=== PATIENT | male | born 1950 | race Caucasian/White ===

== ENCOUNTER → 2021-10-02 13:21 | Outpatient (CLI) | payer OTHER, SELFPAY ==
[2021-10-02 16:35] LABS: COVID19 -Nasal RAPID Negative (Negative)
== END ==
PROVIDERS: Visit Provider Nurse Practitioner Family
DX: Z20.822 Contact with and (suspected) exposure to COVID-19 (principal)
CPT/HCPCS: 87635; C9803

== ENCOUNTER 2021-10-03 13:05 | Day surgery (SDC) | payer OTHER, SELFPAY ==
[2021-10-01 14:05] VITALS: BMI 21.8
[2021-10-03 13:39] VITALS: BP 132/78; PULSE 76; RESP 16; TEMP 37.2; O2SAT 100
[2021-10-03 13:54] VITALS: BMI 21.8
--- NOTE | 2021-10-03 14:10 | PM.PREOP ---
Pre-operative Note COVID-19 COVID-19 status: Negative Interval Note History & Physical reviewed/Exam performed by Physician: Yes Changes to H&P: No
[2021-10-03] MEDS: LACTATED RINGERS 1,000 ML 42 ML IV (14:23)
[2021-10-03] MEDS: CEFAZOLIN 2 GM/20 ML SYRINGE IV (14:40)
[2021-10-03] MEDS: BUPIVACAINE 0.25% (PF) 30 ML, EPINEPHrine 0.15 MG INJ (15:04)
--- NOTE | 2021-10-03 15:09 | SUR.OPER ---
Supine on padded OR bed, head on pillow, arms secured on padded arm boards at <90 degrees abduction, legs uncrossed, safety belt at waist , tape over blanket over lower right leg, left leg draped free with secured blankets under lower leg. .
[2021-10-03] MEDS: VANCOMYCIN 1,000 MG VIAL 1000 MG TOP (15:25)
--- NOTE | 2021-10-03 15:47 | SUR.PREOP ---
5991- called in -? allergy to antibiotic. Gave name of gibraltarian version of med she believes it could be...medication not an antibiotic=medication is for osteoarthritis (Arcoxia). info given to patient = declined need to list it as a medication allergy.
--- NOTE | 2021-10-03 15:59 | P.OP_ITS ---
Operative Date/Time/Diagnoses Date of procedure: 10/03/21 Time of procedure: 15:00 Pre-op diagnosis: Infected hardware left lower extremity ankle Left ankle fracture sequela Syndesmotic disruption left ankle sequela Post-op diagnosis: same Procedure & Clinicians Procedure: Removal of deep implants ankle lateral left CPT code 14125 Removal of deep implants ankle medial, left CPT code 90164-64 Debridement subcutaneous tissue, skin, bone CPT code 37341 left Examination under anesthesia Same procedure as scheduled: Yes Indications: Patient is a 71-year-old male that sustained fracture that was fixed 8 weeks ago by another surgeon in [place]. He developed a draining wound. He has sinus tracks in proximally fiber 6 small locations along the lateral wound with erythema. Continued wound drainage despite 2 weeks of antibiotics prescribed in combination with primary care and the surgeon in [place]. He has evidence of deep infection. A CT scan was obtained which indicates healing of the fracture. The patient was indicated for hardware removal, debridement for treatment of his infection. Will do an exam under anesthesia if his ankle is still unstable then will do revision fixation.. Discussed if hardware needs to stay or revision fixation is indicated then would be indicated for IV antibiotics. If I am able to remove all the hardware in the ankle is stable and no deep purulence obvious he would try oral antibiotics but if unable to eradicate the infection may still require IV antibiotics in the future. The risks and benefits of the procedure have been discussed with the patient and given the opportunity to ask questions. The risks of surgery include but are not limited to infection, need for additional procedures washout 3 antibiotics, malunion, nonunion, persistence of pain, damage to nerves and blood vessels, posttraumatic arthritis, DVT, PE, cardiopulmonary complications and . The patient expressed a thorough understanding of the risks and benefits of surgery and has elected to proceed. Consent was signed. Surgeon: Erika Klein Click Yes if Unassisted: Yes Anesthesia Type: General and Local Operative Notes Findings: Healed lateral malleolus fracture. Plate and 8 screws removed and syndesmotic tight rope was removed. Exam under anesthesia demonstrated stable ankle syndesmosis with external rotation stress testing. No widening of the mortise. Lateral wounds that have sinus tracts down to the hardware. No specific abscess found. Swabs and deep tissue cultures sent for microbiology Closure Type: primary Specimen(s): other (Culture swabs and tissue left lateral ankle sent for microbiology) Estimated Blood Loss (mL): 25 Blood products transfused: none Tourniquet time (min): 40 Procedure in detail: Patient was seen in the preoperative area the site of surgery marked informed consent confirmed. He was brought back to the operating room and positioned supine on operative table. All bony prominences well padded. A well-padded thigh tourniquet was placed. Anesthesia was administered. The left lower extremities prepped and draped in the standard sterile fashion a formal time-out procedure was performed confirming the patient's side and site of surgery administration of appropriate antibiotics. An attempt was made to hold these for cultures with a did get administered prior to incision however the patient had been on 2 weeks of outpatient antibiotics already. Attention turned the left lower extremity. Hawley the exsanguination was utilized and tourniquet elevated to 250 mmHg. The lateral incision with the wounds and sinus tracts was ellipsed to size and excised reopened. This was completed and deep tissue was debrided. Culture swabs and the tissue were sent for pathology. No obvious abscess encountered. The plate was exposed. The tight rope suture was cut and the screws were removed including 7 screws in the plate 1 inter frag lag screw the plate was removed. The suture button was removed. Bone was debrided with a curette and rongeur and soft tissues debrided with a curette as well to freshen the edges. Additional attention was turned medially an incision made over the palpable medial suture button skin incision was made and hemostat used for blunt dissection. The suture button was grasped and removed with remainder of the syndesmotic sutures. Both incisions were thoroughly irrigated with 3 L of saline. Once this was comp leted gloves were changed a new clean drape was placed. Ankle was brought under C-arm demonstrating removal of the hardware. This was stressed in external rotation and the mortise was stable and did not widen. Fractures were healed. No additional fixation was indicated. At this time 1 g vancomycin powder was placed within the lateral wound this was closed with 2-0 PDS and 3-0 nylon suture. The tourniquet was released and hemostasis achieved. The medial incision was closed with 3-0 nylon suture. Toes pinked up well. A sterile dressing was placed with Xeroform gauze Webril and Gildardo wrap and then an outer layer of a ortho glass splint was placed which would provide availability to removed and placed in the cam walker boot when the patient gets home. At this point anesthesia was terminated the drapes removed patient was woken from anesthesia and taken to recovery room in good condition there no immediate complications from the procedure. All counts were correct. Complications: none Post-operative Condition: stable Disposition: PACU Plan for aftercare: Splint applied for incision healing. May switch to his tall walking boot at home. May weight bear as tolerated in the walking boot. Elevate above the heart level as much as possible to help with wound healing. Keep the dressing in place and dry until follow-up. Take antibiotics as prescribed. Based on cultures these may be altered if indicated. Use aspirin for DVT prophylaxis while and walking boot for nonweightbearing
[2021-10-03 16:00] VITALS: BP 131/85; PULSE 99; RESP 15; TEMP 36.4; O2SAT 99
[2021-10-03 16:15] VITALS: BP 145/84; PULSE 80; RESP 15; O2SAT 97
[2021-10-03] MEDS: OXYCODONE IR 5 MG TABLET PO (16:34)
[2021-10-03] MEDS: HYDROMORPHONE 2 MG INJ IV (16:35)
[2021-10-03 16:49] VITALS: BP 147/84; PULSE 81; RESP 15; TEMP 36.2; O2SAT 98
[2021-10-03 16:58] VITALS: BP 147/87; PULSE 82; RESP 15; TEMP 36.6; O2SAT 95
== END 2021-10-03 17:15 | disposition home or self-care (01) ==
PROVIDERS: Referring Provider Family Medicine; Visit Provider Orthopaedic Surgery Foot and Ankle Surgery
PROC: (CPT 20680; principal; 2021-10-03 14:30)
DX: T84.84XA Pain due to internal orthopedic prosthetic devices, implants and grafts, initial encounter (principal); T84.7XXA Infection and inflammatory reaction due to other internal orthopedic prosthetic devices, implants and grafts, initial encounter; S82.892S Other fracture of left lower leg, sequela
CPT/HCPCS: 20680; 87070; 87075; 87076; 87176; 87205; J0171; J0690; J1100; J1170; J2250; J2405; J2704; J3010